=== PATIENT | male | born 1990 | race Caucasian/White ===

== ENCOUNTER → 2018-01-02 | Outpatient (CLI) | payer OTHER | LOC: BRMIMAGING 10:19 | PROVIDERS: ATTEND Hospitalist | DX: S52.612A Displaced fracture of left ulna styloid process, initial encounter for closed fracture (principal); S62.112A Displaced fracture of triquetrum [cuneiform] bone, left wrist, initial encounter for closed fracture | CPT/HCPCS: 73110-PO ==

== ENCOUNTER → 2018-01-15 | Outpatient (CLI) | payer OTHER | LOC: BRMIMAGING 15:52 | PROVIDERS: ATTEND Hospitalist | DX: S62.112D Displaced fracture of triquetrum [cuneiform] bone, left wrist, subsequent encounter for fracture with routine healing (principal) | CPT/HCPCS: 73110-PO ==